=== PATIENT | male | born 1940 | race Caucasian/White ===

== ENCOUNTER 2018-08-06 12:55 | Emergency (ER) | payer OTHER, MEDICARE ==
--- OUTSIDE RECORDS SUMMARY | 2018-08-06 13:19 | XMS REPORT ---
:1940 [facility] Address [address] [place] [address] Care Team Providers Name Role Phone Unavailable Unavailable Unavailable Payers Payer Name Policy Type Policy Number Effective Date Expiration Date Problems This patient has no known problems. Allergies, Adverse Reactions, Alerts Allergy Name Allergy Status Severity Reaction(s) Onset Inactive Treating Comments Type Date Date Clinician codeine DA Active SC 2017-06 00:00:0 0 levofloxacin DA Active SC 2017-06 00:00:0 0 Medications This patient has no known medications. Results Test Description Test Time Test Comments Text Results Atomic Results Result Comments - MRI L-SPINE W/O CONT 2018-03-24 09:45:00 Patient Name: SHEILA WILKINS Unit No: [id number] EXAMS: CPT CODE: [id number] MRI L-SPINE W/O CONT 19536 MRI OF THE LUMBAR SPINE: DIAGNOSIS: 1. At L1-2, marked disc degeneration. 2 mm retrolisthesis of L1 on L2. Moderate central canal stenosis. Mild to moderate facet arthropathy. Marked bilateral bony foraminal stenosis. 2. At L2-3, mild disc degeneration. Mild to moderate central canal stenosis. Moderate facet arthropathy. Mild foraminal stenosis. 3. At L3-4, disc desiccation. Moderate central canal stenosis. Moderate bilateral facet arthropathy. Mild to moderate foraminal stenosis. 4. At L4-5, moderate disc degeneration. Moderate central canal stenosis. Moderate bilateral facet arthropathy. Moderate to marked left foraminal moderate right foraminal stenosis. 5. At L5-S1, moderate disc degeneration. Mild to moderate central canal stenosis. Moderate facet arthropathy. Marked bilateral bony foraminal stenosis. 6. At T12-L1 marked disc degeneration. 2 mm disc bulge. Moderate central canal stenosis. Mild foraminal stenosis. COMMENT: COMPARISON: No prior exams available. Sagittal T1, T2 and STIR and axial T1 and T2-weighted sequences are obtained of the lumbar spine. The lumbar vertebrae are within normal limits in signal. The findings are as above. The conus is in the expected location. at 0945 Reported and signed by: Christie Robins MD CC: Guy Summers MD Technologist: STEPHANIE MALONE RT(R) Transcribed D/ (2386) ChristinaGVG [facility] NAME: SHEILA WILKINS [address] [place] [address] PHYS: Guy Gtz MD : 1940 AGE: 77 SEX: M [place] [id number] LOC: Y.MRI PHONE #: [phone] EXAM DATE: 03/23/2018 STATUS: DEP CLI FAX #: [phone] RAD #: D/C DT PAGE 1 Signed Report Patient Name: SHEILA WILKINS Unit No: [id number] EXAMS: CPT CODE: [id number] MRI L-SPINE W/O CONT 62491 <Continued> Orig Print D/T: S: 03/24/2018 (3248) [facility] NAME: SHEILA WILKINS [address] [place] [address] PHYS: Guy Gtz MD : 1940 AGE: 77 SEX: M [place] [address] LOC: Y.MRI PHONE #: [phone] EXAM DATE: 03/23/2018 STATUS: STALIN CLI FAX #: [phone] RAD #: D/C DT PAGE 2 Signed Report NM BONE SPECT SCAN CLINICAL INDICATION: dx: m54.2, m50.30, cervical spine abnormality, chronic neck pain, left wrist and left foot fx beforeMODALITY: WinAd dual head gamma cameraTECHNIQUE: 25 mCi Tc 99m MDP are injected IV. After a suitable time delay, whole body imaging images were obtained. SPECT imaging of the lumbar spine is performed with computer and physician-assisted 2-D and 3-D reconstruction.FINDINGS:COMPARISON: Cervical spine series performed 05/22/2017.All seven cervical vertebra are well depicted. Narrowing of the median atlanto-axial joint is seen. Mild C4-5 and C5-6 disc space narrowing is present. No measurable subluxation. Dynamic films were previously obtained at the outside facility.Symmetric bilateral renal function is observed.Evidence of periodontal uptake is most prominent within the mandible. Mild to moderate acromioclavicular joint uptake is present bilaterally, mild to moderate left elbow uptake is also seen. Less prominent mild activity is noted at the glenohumeral and sternoclavicular joints bilaterally, patellofemoral joints bilaterally, medial compartment right knee, lateral compartment left knee, right elbow. Mild to moderate uptake is present at approximately the T12-L1 level.SPECT imaging of the cervical spine is reviewed. Mild to moderate uptake is present at approximately C4-5 and C5-6 intervertebral discs. No significant facet localization is present. Mild uptake is present at the median atlanto-axial joint.IMPRESSION:See comments above.PQRS 147: [id number] CR - XRAY CERVICAL XR AP & CLINICAL INDICATION: M54.2 LAT 2/3V CervicalgiaFINDINGS:COMPARISON: NoneThree views of cervical spine were obtained.Cervical spine alignment is unremarkable. No fractures or destructive osseous lesions are seen. Mild multilevel anterior spondylosis is present. Mild to moderate posterior spondylosis is present at the C5-C6 level. There is mild posterior spondylosis at C6-C7 level. Mild to moderate multilevel bilateral cervical facet arthropathy is present.IMPRESSION:Multilevel cervical spondylosis and facet arthrosis.
[2018-08-06 13:45] LABS: Absolute Lymphocytes (CBC) 1.1 K/uL (0.7-4.9); Basophils % 0.7 % (0-1.3); Eosinophils % 2.9 % (0-4.4); Hematocrit 38.6 % (39.6-49.0); Lymphocytes % 13.3 % (15.3-44.8); MPV 8.4 fL (7.6-11.3); Monocytes % 12.5 % (3.3-12.3); RBC Red Blood Cell Count 4.37 M/uL (4.33-5.43)
[2018-08-06 13:47] LABS: Protime INR 1.11
--- NOTE | 2018-08-06 13:48 | RAD REPORT ---
EXAM DESCRIPTION: Lisa Single View08/06/2018 1:41 pm CLINICAL HISTORY: Chest pain COMPARISON: 2013 FINDINGS: The lungs appear clear of acute infiltrate. The heart is normal size IMPRESSION: No acute abnormalities displayed
[2018-08-06 14:07] LABS: ALT/SGPT 20 U/L (12-78); AST/SGOT 18 U/L (15-37); Albumin 4.1 g/dL (3.4-5.0); Alkaline Phosphatase 42 U/L (45-117); BUN Blood Urea Nitrogen 18 mg/dL (7-18); Bicarbonate 27 mmol/L (21-32); Bilirubin Direct 0.2 mg/dL (0-0.2); Bilirubin Total 0.6 mg/dL (0.2-1.0); Glucose Level 186 mg/dL (74-106); Magnesium 2.3 mg/dL (1.8-2.4); NT PRO-BNP 348 pg/mL (<450); Potassium 4.3 mmol/L (3.5-5.1); Protein, Total 7.9 g/dL (6.4-8.2); Sodium Level 141 mmol/L (136-145); Troponin (Emerg Dept Use Only) < 0.02 ng/mL (0.0-0.045)
[2018-08-06] MEDS ORDERED: NA CHLORIDE 0.9% 1,000 ML ONE (14:19)
--- NOTE | 2018-08-06 15:42 | EDPHYS ---
Physician Documentation [facility] Name: Paolo Aj Age: 77 yrs Sex: Male : 1940 Arrival Date: 08/06/2018 Time: 12:56 Bed 5 Private MD: Rinku Mandujano S ED Physician Daniel Reza HPI: 08/06 15:29 This 77 yrs old Male presents to ER via Ambulatory with complaints of Heat gs Exhaustion. 15:29 The patient has experienced near-syncope, felt dizzy. Onset: The symptoms/episode gs began/occurred acutely, just prior to arrival. Duration: This was a single episode, that is still ongoing, but improving. 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 Associated injury: The patient did not suffer any apparent associated injury. Associated signs and symptoms: Pertinent negatives: abdominal pain, chest pain, confusion. Current symptoms: Currently, the patient is not experiencing any symptoms. The patient has experienced similar episodes in the past, a few times. Historical: - Allergies: 13:19 Codeine; ss 13:19 Levaquin; ss - PMHx: 13:19 Diabetes - NIDDM; Hypertension; High Cholesterol; GERD; ss - Immunization history:: Adult Immunizations up to date. - Social history:: Smoking status: Patient/guardian denies using tobacco. - Ebola Screening: : Patient denies exposure to infectious person Patient denies travel to an Ebola-affected area in the 21 days before illness onset. ROS: 15:29 All other systems are negative. gs Exam: 15:29 Head/Face: Normocephalic, atraumatic. Eyes: Pupils equal round and reactive to light, gs extra-ocular motions intact. Lids and lashes normal. Conjunctiva and sclera are non-icteric and not injected. Cornea within normal limits. Periorbital areas with no swelling, redness, or edema. ENT: Nares patent. No nasal discharge, no septal abnormalities noted. Tympanic membranes are normal and external auditory canals are clear. Oropharynx with no redness, swelling, or masses, exudates, or evidence of obstruction, uvula midline. Mucous membranes moist. Neck: Trachea midline, no thyromegaly or masses palpated, and no cervical lymphadenopathy. Supple, full range of motion without nuchal rigidity, or vertebral point tenderness. No Meningismus. Chest/axilla: Normal chest wall appearance and motion. Nontender with no deformity. No lesions are appreciated. Cardiovascular: Regular rate and rhythm with a normal S1 and S2. No gallops, murmurs, or rubs. Normal PMI, no JVD. No pulse deficits. Respiratory: Lungs have equal breath sounds bilaterally, clear to auscultation and percussion. No rales, rhonchi or wheezes noted. No increased work of breathing, no retractions or nasal flaring. Abdomen/GI: Soft, non-tender, with normal bowel sounds. No distension or tympany. No guarding or rebound. No evidence of tenderness throughout. Back: No spinal tenderness. No costovertebral tenderness. Full range of motion. Skin: Warm, dry with normal turgor. Normal color with no rashes, no lesions, and no evidence of cellulitis. MS/ Extremity: Pulses equal, no cyanosis. Neurovascular intact. Full, normal range of motion. Neuro: Awake and alert, GCS 15, oriented to person, place, time, and situation. Cranial nerves II-XII grossly intact. Motor strength 5/5 in all extremities. Sensory grossly intact. Cerebellar exam normal. Normal gait. 15:29 Constitutional: The patient appears alert, awake. 15:29 ECG was reviewed by the Attending Physician. Vital Signs: 13:19 BP 95 / 63; Pulse 62; Resp 17; Pulse Ox 96% on R/A; Weight 95.25 kg; Height 5 ft. 10 ss in. (177.80 cm); Pain 0/10; 13:38 Pulse Ox 90% on R/A; aa5 13:40 BP 96 / 65; Pulse 61; Resp 18 S; Temp 98.0(O); Pulse Ox 97% on 2 lpm NC; Pain 0/10; aa5 14:02 BP 80 / 54; Pulse 58; Resp 16 S; Pulse Ox 96% on 2 lpm NC; aa5 14:10 BP 82 / 53; Pulse 57; Resp 16 S; Pulse Ox 97% on 2 lpm NC; aa5 14:15 BP 89 / 58; Pulse 56; Resp 16 S; Pulse Ox 97% on 2 lpm NC; aa5 14:20 BP 93 / 58; Pulse 56; Resp 16 S; Pulse Ox 96% on 2 lpm NC; aa5 14:25 BP 91 / 60; Pulse 55; Resp 16 S; Pulse Ox 96% on 2 lpm NC; aa5 14:40 BP 98 / 60; Pulse 51; Resp 18 S; Pulse Ox 98% on R/A; aa5 14:50 BP 106 / 65; Pulse 56; Resp 16 S; Pulse Ox 98% on R/A; aa5 15:00 BP 102 / 59; Pulse 54; Resp 16 S; Pulse Ox 99% on R/A; aa5 15:10 BP 110 / 67; Pulse 59; Resp 16 S; Pulse Ox 100% on R/A; aa5 15:20 BP 114 / 67; Pulse 54; Resp 16 S; Pulse Ox 100% on R/A; aa5 15:30 BP 110 / 69; Pulse 52; Resp 16 S; Pulse Ox 100% on 2 lpm NC; aa5 15:40 Pulse Ox 98% on R/A; aa5 16:20 BP 110 / 64; Pulse 54; Resp 18 S; Temp 98.0(TE); Pulse Ox 99% on R/A; aa5 13:19 Body Mass Index 30.13 (95.25 kg, 177.80 cm) ss MDM: 13:36 Patient medically screened. gs 15:29 Differential Diagnosis: cardiac arrhythmia, vasovagal episode, heat exhaustion. Data gs reviewed: vital signs, nurses notes, lab test result(s), EKG, radiologic studies. Counseling: I had a detailed discussion with the patient and/or guardian regarding: the historical points, exam findings, and any diagnostic results supporting the discharge/admit diagnosis, the need for outpatient follow up. Response to treatment: the patient's symptoms have markedly improved after treatment, the patient's condition has returned to base line. 08/06 13:23 Order name: Basic Metabolic Panel 08/06 13:23 Order name: CBC with Diff 08/06 13:23 Order name: LFT's 08/06 13:23 Order name: Magnesium; Complete Time: 14:23 08/06 13:23 Order name: NT PRO-BNP; Complete Time: 14:23 08/06 13:23 Order name: PT-INR; Complete Time: 14:23 08/06 13:23 Order name: Troponin (emerg Dept Use Only); Complete Time: 14:23 08/06 13:23 Order name: XRAY Chest (1 view); Complete Time: 14:23 08/06 13:25 Order name: Basic Metabolic Panel; Complete Time: 14:23 [facility] 08/06 13:25 Order name: CBC with Automated Diff; Complete Time: 14:23 [facility] 08/06 13:25 Order name: Liver (Hepatic) Function; Complete Time: 14:23 [facility] 08/06 13:38 Order name: CPK; Complete Time: 15:27 08/06 13:23 Order name: EKG; Complete Time: 13:26 08/06 13:23 Order name: Cardiac monitoring; Complete Time: 13:38 08/06 13:23 Order name: EKG - Nurse/Tech; Complete Time: 13:38 08/06 13:23 Order name: IV Saline Lock; Complete Time: 13:38 08/06 13:23 Order name: Labs collected and sent; Complete Time: 13:38 08/06 13:23 Order name: O2 Per Protocol; Complete Time: 13:38 08/06 13:23 Order name: O2 Sat Monitoring; Complete Time: 13:39 08/06 16:19 Order name: Fingerstick Glucose; Complete Time: 16:30 gs EC:29 Rate is 60 beats/min. Rhythm is regular. MO interval is prolonged. QRS interval is gs prolonged. T waves are Normal. No ST changes noted. Clinical impression: Abnormal EKG without significant change. Interpreted by me. Administered Medications: 13:55 Drug: NS 0.9% 1000 ml Route: IV; Rate: 1 bolus; Site: right antecubital; aa5 15:10 Follow up: IV Status: Completed infusion; IV Intake: 1000ml aa5 15:35 Drug: NS 0.9% 500 ml Route: IV; Rate: bolus; Site: right antecubital; aa5 16:09 Follow up: IV Status: Completed infusion; IV Intake: 500ml aa5 Disposition: 08/06/18 15:40 Discharged to Home. Impression: Heat exhaustion, unspecified. - Condition is Stable. - Discharge Instructions: Heat Exhaustion Information. - Medication Reconciliation Form, Thank You Letter, Antibiotic Education, Prescription Opioid Use form. - Follow up: Private Physician; When: 2 - 3 days; Reason: Re-evaluation by your physician. Signatures: Dispatcher [employer] EDMS Myriam Bryant RN RN aa5 Radha Bay RN RN ss Daniel Reza MD MD gs Corrections: (The following items were deleted from the chart) 16:31 15:40 08/06/2018 15:40 Discharged to Home. Impression: Heat exhaustion, unspecified. aa5 Condition is Stable. Forms are Medication Reconciliation Form, Thank You Letter, Antibiotic Education, Prescription Opioid Use. Follow up: Private Physician; When: 2 - 3 days; Reason: Re-evaluation by your physician. gs
--- NOTE | 2018-08-06 15:42 | ER ---
Nurse's Notes [facility] Name: Paolo Aj Age: 77 yrs Sex: Male : 1940 Arrival Date: 08/06/2018 Time: 12:56 Bed 5 Private MD: Rinku Mandujano S Diagnosis: Heat exhaustion, unspecified Presentation: 08/06 13:17 Presenting complaint: Patient states: generalized weakness that began after mowing for ss 3 hours. Transition of care: patient was not received from another setting of care. Onset of symptoms was August 06, 2018. Risk Assessment: Do you want to hurt yourself or someone else? Patient reports no desire to harm self or others. Initial Sepsis Screen: Does the patient meet any 2 criteria? No. Patient's initial sepsis screen is negative. Does the patient have a suspected source of infection? No. Patient's initial sepsis screen is negative. Care prior to arrival: None. 13:17 Acuity: JEN 3 ss 13:17 Method Of Arrival: Ambulatory ss Historical: - Allergies: 13:19 Codeine; ss 13:19 Levaquin; ss - PMHx: 13:19 Diabetes - NIDDM; Hypertension; High Cholesterol; GERD; ss - Immunization history:: Adult Immunizations up to date. - Social history:: Smoking status: Patient/guardian denies using tobacco. - Ebola Screening: : Patient denies exposure to infectious person Patient denies travel to an Ebola-affected area in the 21 days before illness onset. Screenin:30 Abuse screen: Denies threats or abuse. Nutritional screening: No deficits noted. aa5 Tuberculosis screening: No symptoms or risk factors identified. Fall Risk IV access (20 points). Total Murry Fall Scale indicates No Risk (0-24 pts). Assessment: 13:25 General: Appears uncomfortable, Behavior is calm, cooperative. Pain: Denies pain. aa5 Neuro: Level of Consciousness is awake, alert, obeys commands, Oriented to person, place, time, situation, Intervention Nurse are equal bilaterally Moves all extremities. Speech is normal, Facial symmetry appears normal, Pupils are PERRLA, Reports generalized weakness . Cardiovascular: Heart tones S1 S2 present Rhythm is regular. Respiratory: Airway is patent Respiratory effort is even, unlabored, Respiratory pattern is regular, symmetrical, Breath sounds are diminished bilaterally. GI: Abdomen is round non-distended, Bowel sounds present X 4 quads. Abd is soft and non tender X 4 quads. Patient currently denies nausea, vomiting. : No signs and/or symptoms were reported regarding the genitourinary system. EENT: No signs and/or symptoms were reported regarding the EENT system. Derm: Skin is pink, warm \T\ dry. Musculoskeletal: Range of motion: intact in all extremities. 13:55 Reassessment: Patient is alert, oriented x 3, equal unlabored respirations, skin aa5 warm/dry/pink. Patient denies pain at this time. 14:15 Reassessment: Pt resting in bed with eyes closed, respirations even and unlabored, skin aa5 is pink/warm/dry. 15:10 Reassessment: Patient is alert, oriented x 3, equal unlabored respirations, skin aa5 warm/dry/pink. Patient denies pain at this time. Patient states feeling better. 15:35 Reassessment: Patient is alert, oriented x 3, equal unlabored respirations, skin aa5 warm/dry/pink. Patient denies pain at this time. Patient states feeling better. 16:30 Reassessment: Patient is alert, oriented x 3, equal unlabored respirations, skin aa5 warm/dry/pink. Vital Signs: 13:19 BP 95 / 63; Pulse 62; Resp 17; Pulse Ox 96% on R/A; Weight 95.25 kg; Height 5 ft. 10 ss in. (177.80 cm); Pain 0/10; 13:38 Pulse Ox 90% on R/A; aa5 13:40 BP 96 / 65; Pulse 61; Resp 18 S; Temp 98.0(O); Pulse Ox 97% on 2 lpm NC; Pain 0/10; aa5 14:02 BP 80 / 54; Pulse 58; Resp 16 S; Pulse Ox 96% on 2 lpm NC; aa5 14:10 BP 82 / 53; Pulse 57; Resp 16 S; Pulse Ox 97% on 2 lpm NC; aa5 14:15 BP 89 / 58; Pulse 56; Resp 16 S; Pulse Ox 97% on 2 lpm NC; aa5 14:20 BP 93 / 58; Pulse 56; Resp 16 S; Pulse Ox 96% on 2 lpm NC; aa5 14:25 BP 91 / 60; Pulse 55; Resp 16 S; Pulse Ox 96% on 2 lpm NC; aa5 14:40 BP 98 / 60; Pulse 51; Resp 18 S; Pulse Ox 98% on R/A; aa5 14:50 BP 106 / 65; Pulse 56; Resp 16 S; Pulse Ox 98% on R/A; aa5 15:00 BP 102 / 59; Pulse 54; Resp 16 S; Pulse Ox 99% on R/A; aa5 15:10 BP 110 / 67; Pulse 59; Resp 16 S; Pulse Ox 100% on R/A; aa5 15:20 BP 114 / 67; Pulse 54; Resp 16 S; Pulse Ox 100% on R/A; aa5 15:30 BP 110 / 69; Pulse 52; Resp 16 S; Pulse Ox 100% on 2 lpm NC; aa5 15:40 Pulse Ox 98% on R/A; aa5 16:20 BP 110 / 64; Pulse 54; Resp 18 S; Temp 98.0(TE); Pulse Ox 99% on R/A; aa5 13:19 Body Mass Index 30.13 (95.25 kg, 177.80 cm) ss ED Course: 12:56 Patient arrived in ED. as 12:56 Rinku Mandujano MD is Private Physician. as 13:11 Daniel Reza MD is Attending Physician. gs 13:17 Triage completed. ss 13:19 Arm band placed on left wrist. ss 13:25 Patient has correct armband on for positive identification. Placed in gown. Bed in low aa5 position. Call light in reach. Side rails up X2. gambling monitor on. Pulse ox on. NIBP on. 13:27 Myriam Bryant, RN is Primary Nurse. aa5 13:30 Initial lab(s) drawn, by me, sent to lab. Inserted saline lock: 20 gauge in right aa5 antecubital area, using aseptic technique. Blood collected. 13:40 X-ray completed. Portable x-ray completed in exam room. Patient tolerated procedure ml well. 13:41 XRAY Chest (1 view) In Process Unspecified. EDMS 16:30 No provider procedures requiring assistance completed. IV discontinued, intact, aa5 bleeding controlled, No redness/swelling at site. Pressure dressing applied. Administered Medications: 13:55 Drug: NS 0.9% 1000 ml Route: IV; Rate: 1 bolus; Site: right antecubital; aa5 15:10 Follow up: IV Status: Completed infusion; IV Intake: 1000ml aa5 15:35 Drug: NS 0.9% 500 ml Route: IV; Rate: bolus; Site: right antecubital; aa5 16:09 Follow up: IV Status: Completed infusion; IV Intake: 500ml aa5 Intake: 15:10 IV: 1000ml; Total: 1000ml. aa5 16:09 IV: 500ml; Total: 1500ml. aa5 Outcome: 15:40 Discharge ordered by . 16:30 Discharged to home ambulatory, with significant other. aa5 16:30 Condition: improved 16:30 Discharge instructions given to patient, significant other, Instructed on discharge instructions, follow up and referral plans. Demonstrated understanding of instructions, follow-up care. 16:31 Patient left the ED. aa5 Signatures: Dispatcher [employer] EDAngelina James Melissa ml Calderon, Audri, RN RN aa Radha Bay RN RN ss Starr, Gregory, MD MD
[2018-08-06] MEDS ORDERED: NA CHLORIDE 0.9% 500 ML ONE (15:47)
[2018-08-06 16:39] VITALS: TEMP 98
[2018-08-06 16:51] VITALS: O2SAT 100
[2018-08-06 16:53] VITALS: BP 110/69
--- NOTE | 2018-08-06 23:21 | EKG ---
Test Date: 2018-08-06 Test Time: 13:36:39 Fund Accountant: HOLLI MEASUREMENT RESULTS: Intervals: Rate: 60 MD: 200 QRSD: 134 QT: 468 QTc: 468 [place]: P: -13 MD: 200 QRS: -33 T: -16 INTERPRETIVE STATEMENTS: Normal sinus rhythm Left axis deviation Right bundle branch block Lateral infarct Abnormal ECG Compared to ECG 05/12/2013 15:55:54 Left-axis deviation now present Right bundle branch block is now present Sinus bradycardia no longer present Lateral infarct is now present Electronically Signed On 08-06-18 23:21:41 CDT by Jitendra Paul
== END 2018-08-06 16:31 | disposition home or self-care (01) ==
LOC: ER 12:55
DX: T67.5XXA Heat exhaustion, unspecified, initial encounter (principal); I10 Essential (primary) hypertension; Z88.1 Allergy status to other antibiotic agents; Z88.5 Allergy status to narcotic agent
CPT/HCPCS: 96361; 93005; 85025; 80048; 36415; 83735; 82550; 85610; 82962; 80076; 84484; 83880; 71045; 96360; 99284; J7030

== ENCOUNTER 2022-11-20 06:00 | Day surgery (SDC) | payer OTHER, MEDICARE ==
[2022-11-17 09:09] LABS: Absolute Lymphocytes (CBC) 1.3 K/uL (0.7-4.9); Hematocrit 42.4 % (39.6-49.0); Lymphocytes % 20.7 % (15.3-44.8); MCV 96.7 fL (80-100); MPV 7.8 fL (7.6-11.3); Platelets 155 thou/uL (152-406); RBC Red Blood Cell Count 4.39 M/uL (4.33-5.43)
[2022-11-17 09:21] LABS: Protime INR 1.07
--- NOTE | 2022-11-17 09:24 | RAD REPORT ---
EXAM DESCRIPTION: RAD - Chest Pa And Lat (2 Views) - 11/17/2022 9:19 am CLINICAL HISTORY: pre op pending heart catheterization Chest pain. COMPARISON: Chest Single View dated 08/06/2018; CHEST PA AND LAT 2 VIEW dated 04/20/2013; CHEST PA AND LAT 2 VIEW dated 10/20/2008; CHEST SINGLE VIEW dated 09/26/2005 TECHNIQUE: PA and lateral views of the chest were obtained. FINDINGS: The lungs are hyperexpanded compatible with COPD. The heart is upper limit of normal in si ze. No fracture or aggressive bony process. IMPRESSION: COPD without acute process identified. The USPSTF recommends annual screening for lung cancer with low-dose CT (LDCT) in adults aged 50 to 80 years who have a 20 pack-year smoking history and currently smoke or have quit within the past 15 years.
[2022-11-17 09:26] LABS: Potassium 4.2 mEq/L (3.5-5.1)
--- NOTE | 2022-11-17 12:14 | EKG ---
Test Date: 2022-11-17 Test Time: 08:50:22 [employer] Found[employer] Laborer: MELISSA MEASUREMENT RESULTS: Intervals: Rate: 64 MT: 226 QRSD: 140 QT: 422 QTc: 435 [place]: P: MT: 226 QRS: -53 T: 25 INTERPRETIVE STATEMENTS: Sinus rhythm with 1st degree AV block Right bundle branch block Left anterior fascicular block Bifascicular block Minimal voltage criteria for LVH, may be normal variant Abnormal ECG Compared to ECG 08/06/2018 13:36:39 First degree AV block now present Left anterior fascicular block now present Bifascicular block now present Left ventricular hypertrophy now present Left-axis deviation no longer present Myocardial infarct finding no longer present Electronically Signed On 11-17-22 12:14:03 CDT by Lobito Enamorado
[2022-11-20] MEDS ORDERED: MIDAZOLAM HCL 2 MG/2 ML INJ ONE (06:37)
[2022-11-20] MEDS ORDERED: VERAPAMIL HCL 10 MG/4 ML VIAL IV ONE (06:37)
[2022-11-20] MEDS ORDERED: HEPARIN 5000 UNIT/ML 1 ML VIAL ONE (06:37)
[2022-11-20] MEDS ORDERED: HEPA 1000U/500MLS 2,000 UNIT/1,000 ML BAG IV ONE (06:37)
[2022-11-20] MEDS ORDERED: FENTANYL CITR 100 MCG/2 ML ONE (06:37)
[2022-11-20] MEDS ORDERED: LIDOCAINE 1% 20 ML MDV ONE (06:37)
[2022-11-20] MEDS ORDERED: HEPARIN 10,000 UNIT/10 ML VIAL IV ONE (06:38)
[2022-11-20] MEDS ORDERED: ASPIRIN 325 MG TAB ONE (06:38)
[2022-11-20] MEDS ORDERED: CLOPIDOGREL 75 MG TABLET ONE (06:38)
[2022-11-20] MEDS ORDERED: ATROPINE SULF 1 MG/10 ML SYR IV ONE ×2 (06:38→11:39)
[2022-11-20] MEDS ORDERED: TICAGRELOR 90 MG TABLET PO ONE (06:38)
[2022-11-20] MEDS ORDERED: NITROGLYCERIN 100 MCG/ML SYR (for cath lab use only) IV ONE (06:38)
[2022-11-20] MEDS ORDERED: NITROGLYCERIN/D5W 25 MG/250 ML BTL IV ONE (06:39)
[2022-11-20] MEDS ORDERED: NA CHLORIDE 0.9% 500 ML ONE (06:49)
[2022-11-20 07:50] VITALS: TEMP 98
--- NOTE | 2022-11-20 08:04 | OP ---
Date of Procedure: 11/20/2022 Surgeon: ANGELA WRIGHT Procedures Performed: 1.Selective coronary angiogram. 2.Left heart catheterization. Indication: Chest pain with abnormal stress test and known history of coronary artery disease. Access: Radial artery 6-Ecuadorean closed with TR band. Complications: None. Bleeding: Less than 20 mL. Anesthesia: Total sedation time was 15 minutes. Description Of Procedure: After risks, benefits, alternatives were explained, patient agreed to proc edure and signed informal consent. Patient was brought into cardiac catheterization laboratory and p repped and draped in usual sterile fashion. Then, I accessed right radial artery using pediatric antonia ropuncture kit and placed a 6-Ecuadorean Slender sheath and took 5-Ecuadorean Holden 4 catheter into aortic ro ot over a J-wire, engaged left main, took standard views and then engaged the RCA, took standard view s and catheter was pushed over the wire into the LV, measured LVEDP and pullback did not record any g radient and then removed the catheter and the sheath, placed TR band with good hemostasis. Findings: 1.Left main, large and normal artery. 2.LAD, large artery with patent proximal to mid LAD stent. Diagonal branch 1 has 50% stenosis and t he rest of the LAD distally is normal. 3.Left circumflex. It is a moderate-sized vessel, has about 50% stenosis in the mid segment. 4.RCA is large dominant with patent proximal stent, mid 40%, distal 40%. 5.LVEDP between 10 and 12 mmHg. Conclusion: 1.Patent LAD and RCA stents. 2.Moderate coronary artery disease elsewhere. 3.Borderline LVEDP. Plan: Medical management. /GABRIELEL Voice ID: [id number] Report ID: [id number]
[2022-11-20 08:15] VITALS: O2SAT 95
[2022-11-20 09:44] VITALS: BP 141/80
[2022-11-20] MEDS ORDERED: HYDRALAZINE HCL 20 MG/ML VIAL ONE (11:39)
== END 2022-11-20 09:15 | disposition home or self-care (01) ==
LOC: CCL 06:00
PROVIDERS: ATTEND Internal Medicine
DX: I25.10 Atherosclerotic heart disease of native coronary artery without angina pectoris (principal); I10 Essential (primary) hypertension; I45.2 Bifascicular block; I44.0 Atrioventricular block, first degree; E78.5 Hyperlipidemia, unspecified; E11.9 Type 2 diabetes mellitus without complications; Z95.5 Presence of coronary angioplasty implant and graft; Z79.82 Long term (current) use of aspirin; Z79.84 Long term (current) use of oral hypoglycemic drugs; Z79.899 Other long term (current) drug therapy; Z88.3 Allergy status to other anti-infective agents; Z88.5 Allergy status to narcotic agent; Z82.41 Family history of sudden cardiac death
CPT/HCPCS: 36415; 71046; 76937; 80048; 82947; 85025; 85610; 85730; 93005; 93458; C1893; J0360; J0461; J1644; J2001; J2250; J3010; J7040

== ENCOUNTER 2023-10-19 06:41 | Emergency (ER) | payer OTHER, MEDICARE ==
[2023-10-19 07:17] LABS: Absolute Eosinophils 0.3 K/uL (0-0.5); Absolute Monocytes 0.9 K/uL (0.1-1.3); Absolute Neutrophil 3.6 K/uL (1.8-8.0); Basophils % 0.7 % (0-1.3); Hematocrit 34.5 % (39.6-49.0); Hemoglobin 11.5 g/dL (13.6-17.9); Lymphocytes % 17.4 % (15.3-44.8); MCH 32.5 pg (27.0-35.0); MCHC 33.3 g/dL (32.0-36.0); MCV 97.7 fL (80-100); MPV 7.9 fL (7.6-11.3); Monocytes % 15.2 % (3.3-12.3); Neutrophils % 61.7 % (41.7-73.7); Platelets 163 thou/uL (152-406); RBC Red Blood Cell Count 3.53 M/uL (4.33-5.43)
[2023-10-19 07:21] LABS: PT Prothrombin Time 12.2 SECONDS (9.4-12.5); PTT, Activated Partial Thromb 30.4 SECONDS (24.3-36.9); Protime INR 1.09
[2023-10-19 07:29] LABS: Albumin 3.1 g/dL (3.4-5.0); Albumin/Globulin Ratio 0.9 (1.1-1.8); Anion Gap 9.2 mEq/L (5.0-15.0); Bilirubin Total 0.5 mg/dL (0.2-1.0); Globulin 3.6 g/dL (2.3-3.5); Potassium 4.2 mEq/L (3.5-5.1); Protein, Total 6.7 g/dL (6.4-8.2)
--- NOTE | 2023-10-19 07:53 | RAD REPORT ---
EXAM DESCRIPTION: CTAbdomen Pelvis W Contrast - 10/19/2023 7:43 am CLINICAL HISTORY: Abdominal pain. rectal bleeding COMPARISON: CT ABD PELVIS W CONTRAST dated 04/26/2014; CT ABD PELVIS W CONTRAST dated 04/25/2013 TECHNIQUE: Venous phase CT imaging of the abdomen and pelvis was performed with 100 ml non-ionic IV contrast. All CT scans are performed using dose optimization technique as appropriate and may include automated exposure control or mA/KV adjustment according to patient size. FINDINGS: The lung bases are clear.Small hiatal hernia. The liver demonstrates diffuse fatty infiltration. Spleen, pancreas, adrenal glands and kidneys are w ithin normal limits. No bowel obstruction, free air, free fluid or abscess. Prominent stool is seen throughout the colon w ith sigmoid diverticulosis. The appendix is normal. No evidence of significant lymphadenopathy. Mild lower lumbar degenerative changes. IMPRESSION: Moderate colonic stool retention with diverticulosis coli present. No evidence of divert iculitis. Diffuse fatty liver.
[2023-10-19] MEDS ORDERED: AMOX/K CLAV 875 MG TAB ONE (08:25)
[2023-10-19] MEDS ORDERED: metroNIDAZOLE 500 MG TABLET ONE (08:25)
--- NOTE | 2023-10-19 08:46 | EDPHYS ---
Physician Documentation [facility] Name: Paolo Aj Age: 82 yrs Sex: Male : 1940 Arrival Date: 10/19/2023 Time: 06:41 Bed 4 Private MD: ED Physician Yusuf Edgar HPI: 10/18 07:08 This 82 yrs old Male presents to ER via EMS with complaints of Rectal Bleeding, Bloody rt Stools, Diarrhea. 07:08 Patient had a colonoscopy performed on [address] Ruby with polyps removed. Was doing rt well since then. Patient states that he woke up in the middle the night, had 2 episodes of diarrhea, and second episode, he noticed that the stool was bloody and he passed clots. Reports only very small amount of brown stool. Denies abdominal pain, nausea, vomiting, acute complaints, symptoms are moderate in severity, no other aggravating or alleviating factors.. Historical: - Allergies: 06:45 Codeine; al5 06:45 Levaquin; al5 - PMHx: 06:45 Diabetes - NIDDM; GERD; High Cholesterol; Hypertension; al5 - PSHx: 06:45 stents; al5 - Immunization history:: Adult Immunizations up to date. - Infectious Disease History:: Denies. - Social history:: Smoking status: Patient denies any tobacco usage or history of. - Family history:: not pertinent. ROS: 07:08 Constitutional: Negative for fever, chills, and weight loss, Cardiovascular: Negative rt for chest pain, palpitations, and edema, Respiratory: Negative for shortness of breath, cough, wheezing, and pleuritic chest pain, MS/Extremity: Negative for injury and deformity, Skin: Negative for injury, rash, and discoloration, Neuro: Negative for headache, weakness, numbness, tingling, and seizure, 07:08 Abdomen/GI: Positive for rectal bleeding, Negative for abdominal pain, nausea and vomiting, Exam: 07:08 Constitutional: This is a well developed, well nourished patient who is awake, alert, rt and in no acute distress. Head/Face: Normocephalic, atraumatic. Chest/axilla: Normal chest wall appearance and motion. Nontender with no deformity. No lesions are appreciated. Cardiovascular: Regular rate and rhythm with a normal S1 and S2. No gallops, murmurs, or rubs. Normal PMI, no JVD. No pulse deficits. Respiratory: Lungs have equal breath sounds bilaterally, clear to auscultation and percussion. No rales, rhonchi or wheezes noted. No increased work of breathing, no retractions or nasal flaring. Abdomen/GI: Soft, non-tender, with normal bowel sounds. No distension or tympany. No guarding or rebound. No evidence of tenderness throughout. Skin: Warm, dry with normal turgor. Normal color with no rashes, no lesions, and no evidence of cellulitis. MS/ Extremity: Pulses equal, no cyanosis. Neurovascular intact. Full, normal range of motion. Neuro: Awake and alert, GCS 15, oriented to person, place, time, and situation. Cranial nerves II-XII grossly intact. Motor strength 5/5 in all extremities. Sensory grossly intact. Cerebellar exam normal. Normal gait. Vital Signs: 06:43 BP 151 / 90; Pulse 67; Resp 18; Temp 98.2; Pulse Ox 100% on R/A; Weight 95.25 kg; al5 Height 5 ft. 10 in. ; Pain 0/10; 07:45 BP 152 / 88; Pulse 70; Resp 17; Pulse Ox 99% on R/A; rs5 08:30 BP 124 / 84 Supine; Pulse 61; rs5 08:32 BP 132 / 84 Sitting; Pulse 65; rs5 08:34 BP 111 / 80 Standing; Pulse 74; rs5 06:43 Body Mass Index 30.13 (95.25 kg, 177.8 cm) al5 06:43 Pain Scale: Adult al5 MDM: 07:01 Patient medically screened. rt 09:26 Differential diagnosis: Post polypectomy bleed, diverticulitis, colitis. Data reviewed: rt vital signs, nurses notes, lab test result(s), radiologic studies. Consideration of Admission/Observation Escalation of care including admission/observation considered. Management of patient was discussed with the following: Brick Sorter: Discussed with teacher private, Dr. Ruby, states most likely post polypectomy bleed, recommends antibiotics and outpatient follow-up.. Independent interpretation of the following test(s) in the Emergency Department CT Scan: My interpretation is No bowel obstruction seen on interpretation of CT scan images. Care significantly affected by the following chronic conditions: Hypertension. Counseling: I had a detailed discussion with the patient and/or guardian regarding the historical points, exam findings, and any diagnostic results supporting the discharge/admit diagnosis, lab results, radiology results, the need for outpatient follow up, to return to the emergency department if symptoms worsen or persist or if there are any questions or concerns that arise at home. Response to treatment: the patient's symptoms have mildly improved after treatment. 10/18 06:43 Order name: CBC with Diff; Complete Time: 07:48 ec2 10/18 06:43 Order name: CMP; Complete Time: 07:48 ec2 10/18 06:43 Order name: Lipase; Complete Time: 07:48 ec2 10/18 06:43 Order name: Type And Screen; Complete Time: 07:48 ec2 10/18 06:43 Order name: PT-INR; Complete Time: 07:48 ec2 10/18 06:43 Order name: Ptt, Activated; Complete Time: 07:48 ec2 10/18 07:06 Order name: CT Abd/Pelvis - IV Contrast Only; Complete Time: 07:54 rt 10/18 06:43 Order name: IV Saline Lock; Complete Time: 06:48 ec2 10/18 06:43 Order name: Labs collected and sent; Complete Time: 07:07 ec2 10/18 08:22 Order name: Orthostatics; Complete Time: 08:39 rt Administered Medications: 08:29 Drug: Amoxicillin-Clavulanate PO 875 mg PO once Route: PO; rs5 08:29 Drug: metroNIDAZOLE PO 500 mg PO once Route: PO; rs5 Disposition Summary: 10/19/23 08:45 Discharge Ordered Notes: Location: Home rt Problem: new rt Symptoms: have improved rt Condition: Stable rt Diagnosis - Post polypectomy bleeding rt Followup: rt - With: Lowell Ruby MD - When: 2 - 3 days - Reason: Discharge Instructions: - Discharge Summary Sheet rt - Rectal Bleeding rt Forms: - Medication Reconciliation Form rt - Antibiotic Education rt - Prescription Opioid Use rt - Patient Portal Instructions rt - Leadership Thank You Letter rt Prescriptions: - Augmentin 875-125 mg Oral Tablet - take 1 tablet ORAL route every 12 hours for 10 days; 20 tablet; Refills: 0, rt Product Selection Permitted - Flagyl 500 mg Oral Tablet - take 1 tablet ORAL route every 8 hours for 10 days; 30 tablet; Refills: 0, rt Product Selection Permitted Signatures: Dispatcher [employer] Yusuf Jenkins MD MD rt Rigoberto Quintana, RN RN rs5 Zaid Chen MD MD ec2 Taniya Chavez RN RN al5
--- NOTE | 2023-10-19 08:46 | ER ---
Nurse's Notes [facility] Name: Paolo Aj Age: 82 yrs Sex: Male : 1940 Arrival Date: 10/19/2023 Time: 06:41 Bed 4 Private MD: Diagnosis: Post polypectomy bleeding Presentation: 10/18 06:43 Chief complaint: Patient states: had 2 episodes of bloody stools/diarrhea along with al5 nickel size clots. had a colonoscopy done on the 07 of october. states he had been fine up until now. Coronavirus screen: At this time, the client does not indicate any symptoms associated with coronavirus-19. Ebola Screen: No symptoms or risks identified at this time. Initial Sepsis Screen: Does the patient meet any 2 criteria? No. Patient's initial sepsis screen is negative. Does the patient have a suspected source of infection? No. Patient's initial sepsis screen is negative. Risk Assessment: Do you want to hurt yourself or someone else? Patient reports no desire to harm self or others. Onset of symptoms was October 19, 2023. 06:43 Method Of Arrival: EMS: [facility] al5 06:43 Acuity: JEN 3 al5 06:45 Care prior to arrival: IV initiated. 20 GA, in the right antecubital area. al5 Triage Assessment: 06:46 General: Appears in no apparent distress. Behavior is calm, cooperative. Pain: Denies al5 pain. EENT: No signs and/or symptoms were reported regarding the EENT system. Neuro: Level of Consciousness is awake, alert, obeys commands, Oriented to person, place, time, situation. Cardiovascular: Capillary refill < 3 seconds Patient's skin is warm and dry. Cardiovascular: patient slightly pale.. Respiratory: Airway is patent Respiratory effort is even, unlabored, Respiratory pattern is regular, symmetrical. GI: Abdomen is flat, non-distended, Reports rectal bleeding, bloody stool. : No signs and/or symptoms were reported regarding the genitourinary system. Derm: Skin is intact, Skin is dry, Skin is pale, Skin temperature is warm. Musculoskeletal: No signs and/or symptoms reported regarding the musculoskeletal system. Historical: - Allergies: 06:45 Codeine; al5 06:45 Levaquin; al5 - PMHx: 06:45 Diabetes - NIDDM; GERD; High Cholesterol; Hypertension; al5 - PSHx: 06:45 stents; al5 - Immunization history:: Adult Immunizations up to date. - Infectious Disease History:: Denies. - Social history:: Smoking status: Patient denies any tobacco usage or history of. - Family history:: not pertinent. Screenin:47 [facility] ED Fall Risk Assessment (Adult) History of falling in the last 3 months, al5 including since admission No falls in past 3 months (0 pts) Confusion or Disorientation No (0 pts) Intoxicated or Sedated No (0 pts) Impaired Gait No (0 pts) Mobility Assist Device Used No (0 pt) Altered Elimination No (0 pt) Score/Fall Risk Level 0 - 2 = Low Risk Oriented to surroundings, Maintained a safe environment, Hourly rounding (assess needs \T\ fall precautionary measures) done. Abuse screen: Denies threats or abuse. Denies injuries from another. Nutritional screening: No deficits noted. Tuberculosis screening: No symptoms or risk factors identified. Assessment: 06:47 Reassessment: see triage assessment. al5 07:44 General: Appears in no apparent distress. comfortable, Behavior is calm, cooperative. rs5 Pain: Denies pain. Neuro: Level of Consciousness is awake, alert, obeys commands, Oriented to person, place, time, situation. Cardiovascular: Patient's skin is warm and dry. Respiratory: Airway is patent Respiratory effort is even, unlabored, Respiratory pattern is regular, symmetrical. GI: Abdomen is round non-distended, Abd is soft and non tender X 4 quads. Reports bloody stool, Patient currently denies nausea, pain. : No signs and/or symptoms were reported regarding the genitourinary system. EENT: No signs and/or symptoms were reported regarding the EENT system. Derm: Skin is intact, Skin is pink, warm \T\ dry. Musculoskeletal: Range of motion: intact in all extremities. 08:40 Reassessment: to bedside for orthostatics, pt denies dizziness during orthostatics. rs5 08:51 Reassessment: Patient and/or family updated on plan of care and expected duration. Pain rs5 level reassessed. Patient is alert, oriented x 3, equal unlabored respirations, skin warm/dry/pink. Vital Signs: 06:43 BP 151 / 90; Pulse 67; Resp 18; Temp 98.2; Pulse Ox 100% on R/A; Weight 95.25 kg; al5 Height 5 ft. 10 in. ; Pain 0/10; 07:45 BP 152 / 88; Pulse 70; Resp 17; Pulse Ox 99% on R/A; rs5 08:30 BP 124 / 84 Supine; Pulse 61; rs5 08:32 BP 132 / 84 Sitting; Pulse 65; rs5 08:34 BP 111 / 80 Standing; Pulse 74; rs5 06:43 Body Mass Index 30.13 (95.25 kg, 177.8 cm) al5 06:43 Pain Scale: Adult al5 ED Course: 06:42 Patient arrived in ED. ec2 06:43 Taniya Chavez, CHRIS is Primary Nurse. al5 06:44 Triage completed. al5 06:47 Arm band placed on right wrist. Patient placed in the treatment room, on a stretcher. al5 06:48 Patient has correct armband on for positive identification. Placed in gown. Bed in low al5 position. Call light in reach. Side rails up X 1. Provided Education on: processes and procedures. 06:48 No provider procedures requiring assistance completed. Maintain EMS IV. Dressing al5 intact. Good blood return noted. Site clean \T\ dry. Gauge \T\ site: 20g rac. Flushed with 10 mL NS. 06:59 Yusuf Edgar MD is Attending Physician. rt 07:45 CT Abd/Pelvis - IV Contrast Only In Process Unspecified. EDMS 08:[address] Ruby. bd 08:[address] Ruby. bd 08:45 Lowell Ruby MD is Referral Physician. rt 08:53 IV discontinued, intact, bleeding controlled, No redness/swelling at site. Pressure rs5 dressing applied. Administered Medications: 08:29 Drug: Amoxicillin-Clavulanate PO 875 mg PO once Route: PO; rs5 08:29 Drug: metroNIDAZOLE PO 500 mg PO once Route: PO; rs5 Medication: 06:48 VIS not applicable for this client. al5 Outcome: 08:45 Discharge ordered by . rt 08:53 Discharged to home ambulatory, rs5 08:53 Condition: stable rs5 08:53 Discharge instructions given to patient, family, Instructed on discharge instructions, follow up and referral plans. Demonstrated understanding of instructions, follow-up care, 08:54 Patient left the ED. rs5 Signatures: Dispatcher [employer] Ena Alcazar Ryan, MD MD rt Sotelo, Ricky RN RN rs5 Zaid Chen MD MD ec2 Taniya Chavez RN RN al5
[2023-10-19 08:59] VITALS: TEMP 98.2
[2023-10-19 09:00] VITALS: O2SAT 99
[2023-10-19 09:03] VITALS: BP 111/80
== END 2023-10-19 08:54 | disposition home or self-care (01) ==
LOC: ER 06:41
DX: K91.840 Postprocedural hemorrhage of a digestive system organ or structure following a digestive system procedure (principal)
CPT/HCPCS: 85025; 36415; 86900; 86850; 85610; 86901; 85730; 83690; 80053; 74177; 99284; Q9967